=== PATIENT | female | born 1985 | race Caucasian/White ===

== ENCOUNTER 2017-01-09 13:35 | Emergency (ER) | payer OTHER ==
[2017-01-09 14:04] LABS: Pregnancy Test - Urine (BHCG) NEGATIVE (NEGATIVE); Pregu Control Bar Appear? YES (CONTROL BAR); Specific Gravity 1.017 (1.002-1.036)
--- NOTE | 2017-01-09 14:37 | RAD ---
LEFT WRIST THREE VIEWS HISTORY: Pain. No known injury. The patient has been doing a lot of pushups lately. COMPARISON: None. FINDINGS: The intercarpal and radial carpal joint space is preserved. No fracture. No cortical irregularity. IMPRESSION: Unremarkable left wrist, three views. POS: [facility]
== END 2017-01-09 15:08 | disposition home or self-care (01) ==
LOC: NAV ERS 13:35
DX: S63.502A Unspecified sprain of left wrist, initial encounter (principal); Z87.891 Personal history of nicotine dependence; Z87.442 Personal history of urinary calculi; Z79.899 Other long term (current) drug therapy; X58.XXXA Exposure to other specified factors, initial encounter
CPT/HCPCS: 81025

== ENCOUNTER 2017-03-22 05:57 | Outpatient (CLI) | payer OTHER ==
[2017-03-22 07:36] LABS: Free T4 (Free Thyroxine) 0.95 ng/dL (0.70-1.48); Magnesium 2.4 mg/dL (1.6-2.6); Thyroid Stimulating Hormone 1.3961 uIU/mL (0.35-4.94); Vitamin D, 25 Hydroxy 47.8 ng/ml (> 30.0)
[2017-03-22 18:02] LABS: Follicle Stimulating Hormone 3.89 mIU/mL (See Ranges)
[2017-03-22 18:07] LABS: Progesterone 0.2 ng/mL
[2017-03-22 18:17] LABS: HBCM Index 0.07 S/CO (0-0.79); HBSAg Index 0.19 S/CO (0-0.99); HIV (1/2) Antibody/Antigen Non-Reactive (NonReactive); HIV 1/2 INDEX 0.09 S/CO (<1.00); Hep A IgM AB Non-Reactive (NonReactive); Hep A IgM S/CO 0.13 S/CO (0-0.79); Hep B Surf Ag Non-Reactive S/CO (NonReactive); Hep C IgG Ab Non-Reactive (NonReactive); Hep C Index 0.14 S/CO (0-0.79); Hepatitis B Core IGM Abs Non-Reactive (NonReactive); Luteinizing Hormone 2.73 mIU/mL (See Ranges)
[2017-03-22 18:23] LABS: Sex Hormone Binding Globulin 96.5 nmol/L (34-148); Testosterone, Total 15.6 ng/dL (14-53)
[2017-03-23 13:55] LABS: Ref Lab Test Ordered LEPTIN SERUM; Reference Lab Name LABCORP
[2017-03-24 12:20] LABS: Chlamydia by PCR Not Detected (NotDetected); GC by PCR Not Detected (NotDetected)
== END 2017-03-22 05:58 | disposition home or self-care (01) ==
LOC: NAV LAB 05:57
PROVIDERS: ATTEND Family Medicine
DX: Z20.9 Contact with and (suspected) exposure to unspecified communicable disease (principal); E00-E89 Endocrine, nutritional and metabolic diseases; E27.1 Primary adrenocortical insufficiency; E27.49 Other adrenocortical insufficiency; Z79.899 Other long term (current) drug therapy
CPT/HCPCS: 36415; 80074; 82024; 82088; 82306; 82533; 82607; 82627; 82670; 82672; 83001; 83002; 83003; 83735; 84144; 84146; 84244; 84270; 84403; 84439; 84443; 84481; 86803; 87252; 87389; 87491; 87591

== ENCOUNTER 2017-04-04 17:02 | Emergency (ER) | payer OTHER ==
[2017-04-04] MEDS ORDERED: Sodium Chloride 0.9% 1,000 ML ONE (17:27)
[2017-04-04] MEDS ORDERED: Ondansetron HCl/PF 4 MG/2 ML Vial ONE (17:27)
[2017-04-04 17:36] LABS: Bilirubin Negative (Negative); Blood, Urine Trace (Negative); Glucose, Urine (Dipstick) Negative (Negative); Leukocyte Negative (Negative); Nitrite Negative (Negative); Protein, Urine (Dipstick) Negative (Neg-Trace); Urobilinogen 0.2 mg/dL (0.2-1.0); pH, Urine 5.5 (5.0-9.0)
[2017-04-04 17:37] LABS: Clarity SL HAZY (Clear)
[2017-04-04 17:38] LABS: Pregnancy Test - Urine (BHCG) Negative (NEGATIVE); Pregu Control Background? CLEAR/WHITE (CLR/WHITE); Pregu Control Bar Appear? YES (CONTROL BAR)
[2017-04-04 17:47] LABS: #Basophils 0.1 thou/uL (0.0-0.2); #Eosinphils 0.1 thou/uL (0.0-0.7); #Lymphocytes 2.2 thou/uL (1.20-3.40); #Monocytes 0.4 thou/uL (0.11-0.59); #Neutrophils 4.6 thou/uL (1.40-6.50); %Basophils 0.9 % (0.0-1.0); %Eosinophils 1.4 % (0.0-10.0); %Lymphocytes 29.2 % (21.0-51.0); %Monocytes 5.9 % (0.0-10.0); %Neutrophils 62.5 % (42.0-75.0); Hemoglobin 12.7 g/dL (12.0-16.0); Mean Corpuscular HGB CONC 32.5 g/dL (32.0-36.0); Mean Corpuscular Hemoglobin 30.2 pg (27.0-31.0); Mean Corpuscular Volume 92.8 fl (81.0-99.0); Platelet Count 239 thou/uL (130-400); RBC Distribution Width 12.2 % (11.5-14.5); Red Blood Cell (RBC) Count 4.22 mill/uL (4.20-5.40); White Blood Cell (WBC) Count 7.4 thou/uL (4.8-10.8)
[2017-04-04 17:50] LABS: Bacteria/HPF 1+ HPF (None Seen); RBC/HPF 0-3 HPF (0-3); Squamous Epithelial 0-3 HPF (0-3)
[2017-04-04 18:04] LABS: ALT (SGPT) 23 U/L (8-55); AST (SGOT) 32 U/L (5-34); Albumin 4.4 g/dL (3.5-5.0); Alkaline Phosphatase 33 U/L (40-150); Anion Gap 14 mmol/L (10-20); BUN (Urea Nitrogen) 19 mg/dL (7.0-18.7); Bilirubin, Total 0.4 mg/dL (0.2-1.2); Calc. Creatinine Clearance 0 mL/min (70-130); Carbon Dioxide 21 mmol/L (22-29); Chloride 108 mmol/L (98-107); Estimated GFR-MDRD 80; Globulin 2.8 g/dL (2.4-3.5); Glucose 89 mg/dL (70-105); Lipase 12 U/L (8-78); Potassium 4.2 mmol/L (3.5-5.1); Protein, Total 7.2 g/dL (6.0-8.3); Sodium 139 mmol/L (136-145)
== END 2017-04-04 18:20 | disposition home or self-care (01) ==
LOC: NAV ERS 17:02
DX: R10.13 Epigastric pain (principal); E86.0 Dehydration; F32.9 Major depressive disorder, single episode, unspecified; Z87.891 Personal history of nicotine dependence; Z87.442 Personal history of urinary calculi; Z79.891 Long term (current) use of opiate analgesic; Z79.899 Other long term (current) drug therapy
CPT/HCPCS: 80053; 81003; 81015; 81025; 83690; 85025; 96361; 96374; J2405; J7050

== ENCOUNTER 2018-01-23 09:45 | Outpatient (CLI) | payer OTHER ==
--- NOTE | 2018-01-24 11:28 | ULT ---
ABDOMINAL ULTRASOUND: Date: 01/23/18 HISTORY: Nausea and vomiting. History of adhesions. Previous cholecystectomy. COMPARISON: 07/28/13. CORRELATION: Abdomen and pelvic CT dated 04/06/17. TECHNIQUE: Utilizing a multihertz transducer, sonographic imaging of the abdomen is performed in the longitudina l and transverse plane. FINDINGS: Visualized hepatic parenchyma has a normal echotexture. No hepatic masses or intrahepatic biliary dil atation. Contour of the hepatic margin is maintained. Right hepatic lobe measures 17.6 cm, CBD is 0.4 cm. The head and proximal pancreatic body have a normal echotexture. Anechoic focus in the left upper lexis drant may represent the cyst described on previous CT, peripancreatic in location. Anechoic focus dilcia sures 5.4 x 5.0 x 3.3 cm. Visualized aorta and inferior vena cava are unremarkable. Bilaterally, no hydronephrosis. Right kidney measures 11.3 x 4.7 x 5.5 cm. There is anechoic cyst in the upper pole measuring approximately 1.0 cm in maximum dimension. Left kidney measures 4.9 x 5.9 x 11.8 cm. Surgically absent spleen. Spleen measures 11.4 cm in maximum dimension. Surgically absent gallbladder. IMPRESSION: 1. Anechoic focus in left upper quadrant, compatible with previously identified cystic lesion, perip ancreatic in location. 2. Gallbladder is surgically absent. Common bile duct diameter is normal. 3. No evidence of hydronephrosis. 4. Mild hepatomegaly. POS: [facility]
== END 2018-01-23 09:46 | disposition home or self-care (01) ==
LOC: NAV ULT 09:45
PROVIDERS: ATTEND Internal Medicine Gastroenterology
DX: R19.7 Diarrhea, unspecified (principal); R11.2 Nausea with vomiting, unspecified; R10.9 Unspecified abdominal pain; R16.0 Hepatomegaly, not elsewhere classified; Z90.49 Acquired absence of other specified parts of digestive tract
CPT/HCPCS: 76700

== ENCOUNTER 2018-09-23 10:22 | Emergency (ER) | payer OTHER ==
[2018-09-23] MEDS ORDERED: methylPREDNISolone Sod Succ/PF 125 MG/2 ML VIAL ONE (11:02)
[2018-09-23] MEDS ORDERED: Sodium Chloride 0.9% 1,000 ML ONE (11:02)
[2018-09-23 11:17] LABS: #Basophils 0.1 thou/uL (0.0-0.2); #Eosinphils 0.2 thou/uL (0.0-0.7); #Monocytes 0.5 thou/uL (0.11-0.59); #Neutrophils 2.4 thou/uL (1.40-6.50); %Basophils 1.1 % (0.0-1.0); %Eosinophils 3.5 % (0.0-10.0); %Lymphocytes 39.4 % (21.0-51.0); %Neutrophils 47.1 % (42.0-75.0); Hemoglobin 13.7 g/dL (12.0-16.0); Mean Corpuscular HGB CONC 33.7 g/dL (32.0-36.0); Mean Corpuscular Volume 91.9 fL (78.0-98.0); Mean Platelet Volume 7.6 fL (7.4-10.4); Platelet Count 258 thou/uL (130-400); RBC Distribution Width 11.5 % (11.5-14.5); Red Blood Cell (RBC) Count 4.42 mill/uL (4.20-5.40); White Blood Cell (WBC) Count 5.1 thou/uL (4.8-10.8)
[2018-09-23 11:23] LABS: BHCG - Serum Negative (NEGATIVE); Pregs Control Bar Appear? YES (CONTROL BAR)
[2018-09-23 11:25] LABS: ALT (SGPT) 13 U/L (8-55); AST (SGOT) 13 U/L (5-34); Albumin 4.6 g/dL (3.5-5.0); Alkaline Phosphatase 34 U/L (40-150); Anion Gap 16 mmol/L (10-20); BUN (Urea Nitrogen) 12 mg/dL (7.0-18.7); Bilirubin, Total 0.6 mg/dL (0.2-1.2); Calc. Creatinine Clearance 0 mL/min (70-130); Calcium 10.7 mg/dL (7.8-10.44); Carbon Dioxide 21 mmol/L (22-29); Chloride 108 mmol/L (98-107); Estimated GFR-MDRD 74; Glucose 88 mg/dL (70-105); Lipase 20 U/L (8-78); Potassium 3.7 mmol/L (3.5-5.1); Protein, Total 7.6 g/dL (6.0-8.3); Sodium 141 mmol/L (136-145)
== END 2018-09-23 12:29 | disposition home or self-care (01) ==
LOC: NAV ERS 10:22
DX: R53.1 Weakness (principal)
CPT/HCPCS: 80053; 83605; 83690; 84703; 85025; 96361; 96374; J2930; J7050

== ENCOUNTER 2019-01-12 15:50 | Emergency (ER) | payer OTHER ==
[2019-01-12 16:42] LABS: #Basophils 0.1 thou/uL (0.0-0.2); #Eosinphils 0.1 thou/uL (0.0-0.7); #Lymphocytes 1.6 thou/uL (1.20-3.40); #Monocytes 0.3 thou/uL (0.11-0.59); #Neutrophils 5.1 thou/uL (1.40-6.50); %Basophils 0.9 % (0.0-1.0); %Eosinophils 1.3 % (0.0-10.0); %Lymphocytes 22.5 % (21.0-51.0); %Monocytes 4.5 % (0.0-10.0); %Neutrophils 70.8 % (42.0-75.0); Hemoglobin 14.7 g/dL (12.0-16.0); Mean Corpuscular HGB CONC 32.8 g/dL (32.0-36.0); Mean Corpuscular Hemoglobin 30.2 pg (27.0-31.0); Mean Corpuscular Volume 92.1 fL (78.0-98.0); Mean Platelet Volume 7.8 fL (7.4-10.4); Platelet Count 292 thou/uL (130-400); RBC Distribution Width 11.7 % (11.5-14.5); Red Blood Cell (RBC) Count 4.86 mill/uL (4.20-5.40); White Blood Cell (WBC) Count 7.1 thou/uL (4.8-10.8)
[2019-01-12 16:47] LABS: ALT (SGPT) 16 U/L (8-55); AST (SGOT) 24 U/L (5-34); Albumin 4.9 g/dL (3.5-5.0); Alkaline Phosphatase 43 U/L (40-150); Anion Gap 17 mmol/L (10-20); BUN (Urea Nitrogen) 14 mg/dL (7.0-18.7); Bilirubin, Total 0.4 mg/dL (0.2-1.2); Calc. Creatinine Clearance 0 mL/min (70-130); Calcium 10.6 mg/dL (7.8-10.44); Carbon Dioxide 23 mmol/L (22-29); Chloride 106 mmol/L (98-107); Estimated GFR-MDRD 84; Globulin 3.1 g/dL (2.4-3.5); Glucose 88 mg/dL (70-105); Potassium 3.9 mmol/L (3.5-5.1); Sodium 142 mmol/L (136-145)
== END 2019-01-12 17:19 | disposition home or self-care (01) ==
LOC: NAV ERS 15:50
DX: E27.1 Primary adrenocortical insufficiency (principal); R11.2 Nausea with vomiting, unspecified; R19.7 Diarrhea, unspecified; F41.9 Anxiety disorder, unspecified; Z87.891 Personal history of nicotine dependence; Z79.899 Other long term (current) drug therapy
CPT/HCPCS: 80053; 85025; 96360

== ENCOUNTER 2019-07-01 20:18 | Emergency (ER) | payer OTHER ==
[2019-07-01] MEDS ORDERED: Sodium Chloride 0.9% 1,000 ML ONE ×2 (21:13→21:48)
[2019-07-01 21:14] LABS: #Basophils 0.1 thou/uL (0.0-0.2); #Eosinphils 0.1 thou/uL (0.0-0.7); #Lymphocytes 1.9 thou/uL (1.20-3.40); #Monocytes 0.6 thou/uL (0.11-0.59); #Neutrophils 4.7 thou/uL (1.40-6.50); %Basophils 1.1 % (0.0-1.0); %Eosinophils 1.7 % (0.0-10.0); %Lymphocytes 25.4 % (21.0-51.0); %Monocytes 8.4 % (0.0-10.0); %Neutrophils 63.5 % (42.0-75.0); Hemoglobin 12.9 g/dL (12.0-16.0); Mean Corpuscular HGB CONC 33.2 g/dL (32.0-36.0); Mean Corpuscular Hemoglobin 30.9 pg (27.0-31.0); Mean Platelet Volume 7.9 fL (7.4-10.4); Platelet Count 267 thou/uL (130-400); RBC Distribution Width 11.8 % (11.5-14.5); Red Blood Cell (RBC) Count 4.17 mill/uL (4.20-5.40); White Blood Cell (WBC) Count 7.4 thou/uL (4.8-10.8)
[2019-07-01 21:17] LABS: Bilirubin Negative (Negative); Blood, Urine Trace (Negative); Glucose, Urine (Dipstick) Negative (Negative); Leukocyte Negative (Negative); Nitrite Negative (Negative); Protein, Urine (Dipstick) Negative (Neg-Trace); Urobilinogen 0.2 mg/dL (Less than 2)
[2019-07-01 21:19] LABS: Clarity SL HAZY (Clear); Pregnancy Test - Urine (BHCG) Negative (Negative); Pregu Control Background? CLEAR/WHITE (CLR/WHITE); Pregu Control Bar Appear? YES (CONTROL BAR); Specific Gravity 1.015 (1.002-1.036)
[2019-07-01 21:29] LABS: ALT (SGPT) 14 U/L (8-55); AST (SGOT) 12 U/L (5-34); Albumin 4.2 g/dL (3.5-5.0); Alkaline Phosphatase 38 U/L (40-110); Anion Gap 15 mmol/L (10-20); BUN (Urea Nitrogen) 16 mg/dL (7.0-18.7); Bilirubin, Total 0.2 mg/dL (0.2-1.2); Calc. Creatinine Clearance 0 mL/min (70-130); Calcium 9.1 mg/dL (7.8-10.44); Carbon Dioxide 20 mmol/L (22-29); Chloride 109 mmol/L (98-107); Estimated GFR-MDRD 86; Globulin 2.4 g/dL (2.4-3.5); Glucose 108 mg/dL (70-105); Potassium 3.8 mmol/L (3.5-5.1); Protein, Total 6.6 g/dL (6.0-8.3); Sodium 140 mmol/L (136-145)
[2019-07-01 21:31] LABS: RBC/HPF 0-3 HPF (0-3); Squamous Epithelial 0-3 HPF (0-3)
== END 2019-07-01 23:05 | disposition home or self-care (01) ==
LOC: NAV ERS 20:18
DX: E27.1 Primary adrenocortical insufficiency (principal); F41.9 Anxiety disorder, unspecified; Z87.891 Personal history of nicotine dependence; Z79.899 Other long term (current) drug therapy
CPT/HCPCS: 36415; 80053; 81003; 81015; 81025; 85025; 93005; 96360; J7050

== ENCOUNTER 2019-07-16 23:58 | Emergency (ER) | payer OTHER ==
[2019-07-17] MEDS ORDERED: Ondansetron PF 4 MG/2 ML Vial ONE ×2 (00:08→00:21)
[2019-07-17] MEDS ORDERED: Hydrocortisone Sod Succ/PF 100 mg/2 ml Vial ONE ×2 (00:12→01:25)
[2019-07-17] MEDS ORDERED: methylPREDNISolone Sod Succ/PF 125 MG/2 ML VIAL ONE (00:26)
[2019-07-17 00:45] LABS: ALT (SGPT) 13 U/L (8-55); AST (SGOT) 14 U/L (5-34); Albumin 4.6 g/dL (3.5-5.0); Alkaline Phosphatase 37 U/L (40-110); Anion Gap 17 mmol/L (10-20); BUN (Urea Nitrogen) 25 mg/dL (7.0-18.7); Bilirubin, Total 0.5 mg/dL (0.2-1.2); Calc. Creatinine Clearance 0 mL/min (70-130); Calcium 9.2 mg/dL (7.8-10.44); Carbon Dioxide 23 mmol/L (22-29); Chloride 105 mmol/L (98-107); Estimated GFR-MDRD 69; Globulin 2.9 g/dL (2.4-3.5); Glucose 100 mg/dL (70-105); Lipase 17 U/L (8-78); Potassium 3.7 mmol/L (3.5-5.1); Protein, Total 7.5 g/dL (6.0-8.3); Sodium 141 mmol/L (136-145)
[2019-07-17 00:57] LABS: Band 2 % (5-11); Eosinophils 3 % (0-10); Hemoglobin 14.2 g/dL (12.0-16.0); Lymphocytes 8 % (21-51); MDiff Complete? YES; Mean Corpuscular HGB CONC 33.4 g/dL (32.0-36.0); Mean Corpuscular Hemoglobin 31.8 pg (27.0-31.0); Mean Corpuscular Volume 95.2 fL (78.0-98.0); Mean Platelet Volume 7.4 fL (7.4-10.4); Monocytes 6 % (0-10); Neutrophil 81 % (42-75); Platelet Count 258 thou/uL (130-400); Platelet Morphology Comment Appears Adequate; RBC Distribution Width 12.3 % (11.5-14.5); RBC Morphology Normal; Red Blood Cell (RBC) Count 4.46 mill/uL (4.20-5.40); White Blood Cell (WBC) Count 10.1 thou/uL (4.8-10.8)
== END 2019-07-17 01:30 | disposition short-term general hospital (02) ==
LOC: NAV ERS 23:58
DX: E27.2 Addisonian crisis (principal); I34.1 Nonrheumatic mitral (valve) prolapse; E87.6 Hypokalemia; F41.9 Anxiety disorder, unspecified; Z79.899 Other long term (current) drug therapy
CPT/HCPCS: 36415; 80053; 83605; 83690; 85025; 87040; 87804; J1720; J2405; J2930

== ENCOUNTER 2019-07-19 12:46 | Emergency (ER) | payer OTHER ==
[2019-07-19] MEDS ORDERED: Loperamide HCl 2 MG CAP ONE (13:21)
[2019-07-19 13:57] LABS: Anion Gap 15 mmol/L (10-20); BUN (Urea Nitrogen) 10 mg/dL (7.0-18.7); Calc. Creatinine Clearance 0 mL/min (70-130); Calcium 9.2 mg/dL (7.8-10.44); Carbon Dioxide 21 mmol/L (22-29); Chloride 110 mmol/L (98-107); Estimated GFR-MDRD Greater than 90; Glucose 100 mg/dL (70-105); Potassium 3.4 mmol/L (3.5-5.1); Sodium 143 mmol/L (136-145)
== END 2019-07-19 14:35 | disposition home or self-care (01) ==
LOC: NAV ERS 12:46
DX: R19.7 Diarrhea, unspecified (principal); Z87.442 Personal history of urinary calculi; Z87.891 Personal history of nicotine dependence; Z79.899 Other long term (current) drug therapy
CPT/HCPCS: 36415; 80048; 99284

== ENCOUNTER 2019-08-22 17:19 | Emergency (ER) | payer OTHER | END 2019-08-22 19:40 | disposition home or self-care (01) | LOC: NAV ERS 17:19 | DX: E86.0 Dehydration (principal); F17.210 Nicotine dependence, cigarettes, uncomplicated; Z86.39 Personal history of other endocrine, nutritional and metabolic disease; Z79.899 Other long term (current) drug therapy | CPT/HCPCS: 96360; 96361 ==

== ENCOUNTER 2020-04-25 10:35 | Emergency (ER) | payer OTHER ==
[2020-04-25] MEDS ORDERED: Meclizine HCl 25 MG TAB ONE (11:25)
[2020-04-25] MEDS ORDERED: Sodium Chloride 0.9% 1,000 ML ONE (11:25)
--- NOTE | 2020-04-25 11:49 | RAD ---
CHEST ONE VIEW: INDICATIONS: Dyspnea. COMPARISON: Prior exam dated 04/02/2019. FINDINGS: The lungs are clear. The heart size is normal. No pleural effusion or pneumothorax is evident. No acu te osseous abnormality is evident. IMPRESSION: No acute cardiopulmonary abnormality. POS: [facility]
[2020-04-25 12:08] LABS: ALT (SGPT) 12 U/L (8-55); AST (SGOT) 12 U/L (5-34); Albumin 4.5 g/dL (3.5-5.0); Alkaline Phosphatase 35 U/L (40-110); Anion Gap 15 mmol/L (10-20); BUN (Urea Nitrogen) 15 mg/dL (7.0-18.7); Bilirubin, Total 0.4 mg/dL (0.2-1.2); Calc. Creatinine Clearance 0 mL/min (70-130); Calcium 9.5 mg/dL (7.8-10.44); Carbon Dioxide 22 mmol/L (22-29); Chloride 107 mmol/L (98-107); Estimated GFR-MDRD 71; Globulin 2.6 g/dL (2.4-3.5); Glucose 85 mg/dL (70-105); Potassium 4.2 mmol/L (3.5-5.1); Protein, Total 7.1 g/dL (6.0-8.3); Sodium 140 mmol/L (136-145)
[2020-04-25 12:14] LABS: #Basophils 0.1 thou/uL (0.0-0.2); #Eosinphils 0.2 thou/uL (0.0-0.7); #Monocytes 0.6 thou/uL (0.11-0.59); %Basophils 1.2 % (0.0-1.0); %Eosinophils 3.5 % (0.0-10.0); %Lymphocytes 29.3 % (21.0-51.0); %Neutrophils 58.1 % (42.0-75.0); Hemoglobin 13.5 g/dL (12.0-16.0); Mean Corpuscular HGB CONC 31.6 g/dL (32.0-36.0); Mean Corpuscular Hemoglobin 30.3 pg (27.0-31.0); Mean Corpuscular Volume 95.9 fL (78.0-98.0); Platelet Count 236 thou/uL (130-400); Red Blood Cell (RBC) Count 4.44 mill/uL (4.20-5.40); White Blood Cell (WBC) Count 6.9 thou/uL (4.8-10.8)
== END 2020-04-25 12:55 | disposition home or self-care (01) ==
LOC: NAV ERS 10:35
DX: R42 Dizziness and giddiness (principal); T42.6X5A Adverse effect of other antiepileptic and sedative-hypnotic drugs, initial encounter; F41.9 Anxiety disorder, unspecified; F17.210 Nicotine dependence, cigarettes, uncomplicated; Z79.899 Other long term (current) drug therapy
CPT/HCPCS: 71045; 80053; 84443; 84484; 85025; 93005; 96360; J7050